=== PATIENT | male | born 1955 | race Caucasian/White ===

== ENCOUNTER 2016-09-26 13:39 | Outpatient (CLI) | payer OTHER ==
[2016-04-19 15:43] VITALS: BP 146/94
== END 2016-09-26 13:40 ==
LOC: CARD 13:39
PROVIDERS: ATTEND Internal Medicine Cardiovascular Disease
DX: I50.9 Heart failure, unspecified (principal)
CPT/HCPCS: 99213

== ENCOUNTER 2016-11-13 08:56 | Outpatient (CLI) | payer OTHER ==
[2016-04-19 15:43] VITALS: BP 146/94
[~2016-11-13 08:56] MED LIST: 0.9 % SODIUM CHLORIDE PF 10 ML VIAL IJ ONE; Lidocaine 1% 5ml(IM or SUTURE)(PAIN CLINIC) ONE; TRIAMCINOLONE ACETONID 40MG/ML VIAL ONE
--- NOTE | 2016-11-13 10:58 | HISTORY AND PHYSICAL REPORT ---
REFERRING PHYSICIAN: Dr. Michael Zavala Dear Michael: HISTORY OF PRESENT ILLNESS: I had the opportunity of seeing Donovan Higuera today as an outpatient at [facility]. As you are aware, Mr. Higuera is a very nice 60-year- old white male whose chief complaint is back and bilateral lower extremity pain. He said this began greater than 10 years ago and that he has pain in his low back, right side greater than the left, which radiates down both legs and results in weakness. He describes symptoms of neurogenic claudication. He denies incontinence of bowel or bladder. He denies symptoms of nani radiculitis. He had an MRI done that was performed at [facility] which I do not have the films for today and the report is significant for facet arthropathy and multi-level spinal stenosis without any definitive report of which levels are the most severe or significant. MRI shows disk desiccation, L2 -L3, L3-L4, and L5-S1 facet arthropathy, L5-S1 concentric disk bulge, and minimal stenosis at L4-L5. PAST MEDICAL HISTORY: 1. History of COPD. 2. CHF. 3. Hypertension. PAST SURGICAL HISTORY: Appendectomy at 13 months old. CURRENT DAILY MEDICATIONS: 1. Lisinopril 40 mg daily. 2. Amlodipine 5 mg at bedtime. 3. Furosemide 20 to 40 mg daily, p.r.n. 4. Symbicort 2 puffs b.i.d. ALLERGIES: He has no known drug allergies. SOCIAL HISTORY: He is a current smoker down to one-half pack per day. He drinks at least 2 beers a day. He denies recreational drugs. He is . He has 3 children. He lives at home alone. He completed the 10th grade. He is not currently employed. Unknown occupation. He is currently disabled for an unknown reason. FAMILY HISTORY: He has no reported family history. REVIEW OF SYSTEMS: In the past month or so, he has no complaints other than related to his back pain. Pain is worse with lying down, standing, bending over, sitting, walking, twisting, and getting up from a chair. Pain is improved with standing and walking and continually changing positions. PHYSICAL EXAMINATION: General: This is a well-nourished, well-developed white male in no apparent distress. Vital Signs: BP: 155/80, P: 76, R: 20, oxygen saturation is 98% on room air. HEENT: Pupils are equal, round, and reactive to light and accommodation. Extraocular movements intact. No facial droop. Neck: There is full range of motion of the cervical spine. No evidence of adenopathy. Thyroid is nontender, no enlarged. Carotids are without bruits. Chest: Clear to auscultation bilaterally. Normal. Chest excursion. Heart: Regular rate and rhythm without murmur. Abdomen: Benign. Normoactive bowel sounds. Motor/sensory: Intact in the upper and lower extremities. Moves all extremities freely. Extremities: Strength is 5/5 and equal in his lower extremities. Negative straight leg raise. Negative femoral nerve stretch. Negative Sandee. ASSESSMENT: 1. Symptoms of neurogenic claudication and lumbar spinal stenosis. 2. Lumbar spondylosis. 3. History of tobacco use. PLAN: Plan today for a right L4-L5 epidural steroid injection. I will follow this nice gentleman up in 1 month. I explained that 1 injection may be sufficient to control his symptoms or we may need to give him a follow up injection. He is in agreement today and we will proceed with a lumbar epidural steroid injection under fluoroscopy. cc: Dr. Michael Zavala. [facility]ENTER[facility]ry
--- NOTE | 2016-11-13 11:02 | LESI WITH FLUORO ---
REFERRING PHYSICIAN: Dr. Michael Zavala OPERATIVE PROCEDURE: Right L4-L5 epidural steroid injection with fluoroscopic guidance. DESCRIPTION OF PROCEDURE: The risks and benefits were discussed with the patient including the risk of infection, bleeding, nerve injury, and headache, as well as the risks of steroid exposure causing hyperglycemia, hypertension, osteoporosis, or increased infectious risks. The patient understood these risks and agreed to proceed. Consent was obtained prior to the procedure. The patient was placed in the prone position on the fluoroscopy table with a pillow underneath the abdomen to afford anterior flexion of the lumbar spine. The low back was cleaned and a sterile drape was applied. An 18-gauge thin wall Tuohy epidural needle was advanced with normal saline loss of resistance technique and direct fluoroscopic guidance with a right paramedian approach at the L4-L5 level. On obtaining loss of resistance to normal saline, it was verified that there was no aspiration of CSF or blood. Furthermore, the needle tip location was verified with lateral and AP fluoroscopic views. Omnipaque 240 myelogram dye were injected through the epidural needle. The distribution of the dye was noted to be within the desired distribution within the lumbar epidural space. Triamcinolone acetate and 1% lidocaine was injected into the epidural space. The stylet was replaced in the needle and the needle was removed from the back. The patient tolerated the procedure well. The back was cleaned and a bandage was applied over the injection site. The patient was monitored for 20 minutes following the procedure and during this time the vital signs remained stable and the patient experienced no adverse sequelae. The patient was discharged in good condition. ASSESSMENT: 1. Lumbar spinal stenosis. 2. Lumbar spondylosis. PLAN: Right L4-L5 epidural steroid injection with fluoroscopic guidance. FOLLOWUP: Return to clinic if problems develop or worsen. cc: Dr. Michael PERALES
== END 2016-11-13 08:57 ==
LOC: OUT 08:56
PROVIDERS: ATTEND Anesthesiology Pain Medicine
DX: M47.816 Spondylosis without myelopathy or radiculopathy, lumbar region (principal); M48.06 Spinal stenosis, lumbar region
CPT/HCPCS: J3301; Q9966; 64483; 99214

== ENCOUNTER 2016-12-24 13:01 | Emergency (ER) | payer OTHER ==
[2016-12-24] MEDS ORDERED: 0.9 % SODIUM CHLORIDE 500 ML IV ONE (13:07)
[2016-12-24] MEDS ORDERED: DIPH,PERTUSS(ACELL),TET VAC/PF 0.5 ML DISP.SYRIN IM ONE (13:16)
[2016-12-24] MEDS ORDERED: NEOMYCIN SU/BACITRAC ZN/POLY 1 EACH OINT.PACK TP ONE (13:16)
--- NOTE | 2016-12-24 13:19 | ED Physician Documentation ---
General Adult - HISTORIAN Historian: patient - HPI Stated Complaint: ? Syncope/Fall Chief Complaint: General Adult Additional Information: Dizzy since yesterday. Worse this am. Passed out and fell on way to bathroom at about 1100. Sister brought him to ER. - ROS CONST: sweating (This am when especially dizzy.) CVS/RESP: shortness of breath, cough (but his usual). denies: chest pain - PAST HX Past History: COPD, CHF, other (spinal stenosis) Allergies/Adverse Reactions: Allergies Allergy/AdvReac Type Severity Reaction Status Date / Time No Known Allergies Allergy Unverified 12/24/16 13:12 Home Medications: Ambulatory Orders Medication Instructions Recorded Aspirin 81 mg PO DAILY u2 10/15/12 - SOCIAL HX Smoking History: cigarettes - FAMILY HX Family History: No - VITAL SIGNS Vital Signs: Vital Signs Temp Pulse Resp BP Pulse Ox 98 F 150 H 26 H 111/71 99 12/24/16 13:05 12/24/16 13:05 12/24/16 13:05 12/24/16 13:05 12/24/16 13:05 - REVIEWED ASSESSMENTS Nursing Assessment Reviewed: Yes Vitals Reviewed: Yes Progress - Progress Progress: HGB 7.9. Now says stools black since last evening. Also notes that there was no blood when he vomited yesterday evening after drank a beer. Incontinent of stool today when passed out. Obvious blood in stool cleaned from him in ER. EKG: sinus tach, 122 BPM 1410, accepted for transfer to [facility] ER per Dr. Ravi, Pulm ICU. Sister [id number] in ER and says she found gross blood, "a large amount" in patient's commode today. ED Results Lab/Radiology - Orders Orders: ED Orders Category Date Time Status Apply occlusive dressing D Care 12/24/16 13:16 Ordered Continuous EKG monitoring Q1H Care 12/24/16 13:06 Ordered Continuous Pulse Oximetry Q1H Care 12/24/16 13:[address] Saline Lock/IV Now Care 12/24/16 13:06 Ordered CBC/PLATELET/DIFF Routine Lab 12/24/16 Ordered CMP Routine Lab 12/24/16 Ordered NT-proBNP Stat Lab 12/24/16 Ordered TROPONIN I (cTnI) Stat Lab 12/24/16 Ordered URINALYSIS Routine Lab 12/24/16 Ordered Diph,Pertuss(Acell),Tet Vac/Pf [Adacel] Med 12/24/16 13:16 Once 0.5 ml IM .ONCE ONE NORMAL SALINE @ 500 MLS/HR(500ml BOLUS) Med 12/24/16 13:07 Ordered 0.9 % Sodium Chloride [Normal Saline] 500 ml IV NOW Neomycin Alex/Bacitrac Zn/Poly [Triple Antibiotic Med 12/24/16 13:16 Once Ointment] 1 each TP NOW ONE EKG WITH COMPARISON Stat Ther 12/24/16 Ordered General Adult Physical Exam - PHYSICAL EXAM GENERAL APPEARANCE: moderate distress EENT: eye inspection normal, ENT inspection normal, pharynx normal NECK: normal inspection, supple RESPIRATORY: no resp distress, breath sounds normal CVS: reg rate & rhythm, heart sounds normal, tachycardia (120-160) ABDOMEN: soft, no organomegaly, normal bowel sounds, non-tender RECTAL: deferred BACK: normal inspection SKIN: normal color, diaphoresis (slight) EXTREMITIES: no evidence of injury (except skin tear right forearm) NEURO: CN's nml as tested, motor nml, sensation nml, cognition normal Discharge Clincal Impression: GI bleed Qualifiers: GI bleed type/associated pathology: melena Qualified Code(s): K92.1 - Melena Home Medications: Ambulatory Orders Aspirin 81 mg PO DAILY u2 10/15/12 Condition: Fair Disposition: 02 XFER SHT-TRM HOSP Decision to Admit: NO Decision Time: 14:10
[2016-12-24 13:23] LABS: BASOPHILS % 0.2 (0.0-1.5); EOSINOPHILS % 0.4 % (0.0-6.8); MEAN CORPUSCULAR VOLUME 92.2 fl (80.0-100.0); MONOCYTES % 4.8 % (0.0-11.0); NEUTROPHILS # 15.5 # k/uL (1.4-7.7)
[2016-12-24 13:34] LABS: eGFR (African) > 60; eGFR (Non-African) > 60
[2016-12-24 14:28] VITALS: BP 89/55
--- NOTE | 2016-12-24 16:59 | Diagnostic Imaging Report ---
STERLING HARVEY~ [facility] [address] [facility] [address] [place], [place]. [address] ~ ~ ~ ~ Report Submission Date: Dec 24, 2016 2:03:28 PM CDT Patient ~ Study Name: PHAM LYNCH ~ Date: Dec 24, 2016 1:48:52 PM CDT ~ Modality Type: CR Gender: M ~ Description: CHEST : 57 ~ Institution: [facility] Physician: STERLING HARVEY ~ ~ ~ ~ Portable upright radiograph the chest Clinical history fainting dizziness Technique AP portable upright radiograph of the chest at 1353 hr FINDINGS: ~ The lung singh are hyperinflated but clear. ~The heart mediastinal structures are unremarkable. ~There is no hemothorax or pneumothorax. ~The bony thorax is normal. ~ IMPRESSION: ~ Hyperinflation No acute infiltrate ~ Electronically signed on Dec 24, 2016 2:03:28 PM CDT by: Fabiano PERALES
[2016-12-25 05:45] LABS: APPEARANCE,URINE CLEAR (CLEAR); COLOR,URINE YELLOW (YELLOW); OCCULT BLOOD,URINE 1+ (NEGATIVE); UROBILINOGEN URINE 0.2 Eu (0.2-1.0)
== END 2016-12-24 14:20 | disposition short-term general hospital (02) ==
LOC: ED 13:01
DX: K92.1 Melena (principal)
CPT/HCPCS: 71010; 80053; 81002; 83880; 84484; 85025; 85610; 87040; 90715; 93005; J7060; 90471; 99283; S1016

== ENCOUNTER 2017-05-31 20:39 | Observation (INO) | payer OTHER ==
--- NOTE | 2017-05-31 21:14 | ED Physician Documentation ---
Syncope/Near Syncope - HISTORIAN Historian: patient, paramedics - HPI Stated Complaint: lightheaded Chief Complaint: Syncope Additional Information: said he felt funny, tried to get up to go to the bathroom, passed out, he had just checked his BP when he was feeling bad and it was 76/50. normal for him is 120/80. he has A-fib. only on ASA. his a-fib is rapid v response. He drinks 12 pack beer daily, smokes 1 pack daily. was hospitalized for CHF last year. was hospitalized for blood transfusion due to bleeding ulcers last spring. he has a insurance clerk that he doesn't see. he feels back to normal now. he has no pain complaints. he wants to go home. Witnessed: Yes Witnessed By: family Position at Time of Episode: standing Symptoms Prior to Episode: light-headed Character of Events(s): lost consciousness, collapsed Symptoms after Event: incontinent of stool. denies: confused after event, incontinent of urine, breathing shallow, breathing stopped, lost pulse Location of Injury: none Associated Symptoms: none, feels back to normal - ROS CONST: denies: recent illness, fever, cough EYES/ENT: none GI/: denies: diarrhea, black stools MS/SKIN/LYMPH: denies: joint pain NEURO/PSYCH: denies: confusion - PAST HX Cardiac Disease: CHF PE Risk Factors: none Surgeries/Procedures: appendectomy Allergies/Adverse Reactions: Allergies Allergy/AdvReac Type Severity Reaction Status Date / Time No Known Allergies Allergy Verified 05/31/17 20:52 Home Medications: Ambulatory Orders Medication Instructions Recorded Aspirin 81 mg PO DAILY u2 10/15/12 Lisinopril [Zestril] 40 mg PO BID 05/31/17 Tramadol HCl [Ultram] 50 mg PO Q6 PRN 05/31/17 - SOCIAL HX Smoking History: cigarettes, greater than 1 pack/day Alcohol Use: heavy Drug Use: none - FAMILY HX Family History: none - VITAL SIGNS Vital Signs: Vital Signs Temp Pulse Resp BP Pulse Ox 96 H 18 115/75 96 05/31/17 21:10 05/31/17 20:40 05/31/17 21:10 05/31/17 20:40 - REVIEWED ASSESSMENTS Nursing Assessment Reviewed: Yes Vitals Reviewed: Yes Progress - Progress Progress: Dr Gutierres said ok to admit. ED Results Lab/Radiology - Lab Results Lab Results: Lab Results 05/31/17 05/31/17 05/31/17 21:20 21:20 20:21 WBC 8.90 K/ul K/ul (4.00-12.00) RBC 4.24 M/ul M/ul (3.90-5.20) Hgb 12.7 g/dL g/dL (12.0-18.0) Hct 36.3 % L % (37.0-53.0) MCV 85.7 fl fl (80.0-100.0) MCH 30.1 pg pg (28.0-34.0) MCHC 35.1 g/dL g/dL (30.0-36.0) RDW 15.2 % H % (11.3-14.3) Plt Count 177 K/mm3 K/mm3 (130-400) Neut % (Auto) 69.0 % % (39.0-79.0) Lymph % (Auto) 17.5 % % (16.0-50.0) Bremer % (Auto) 9.1 % % (0.0-11.0) Eos % (Auto) 2.4 % % (0.0-6.8) Baso % (Auto) 0.4 (0.0-1.5) Neut # (Auto) 6.1 # k/uL # k/uL (1.4-7.7) Lymph # (Auto) 1.6 # k/uL # k/uL (0.6-4.0) Bremer # (Auto) 0.8 # k/uL # k/uL (0.0-0.9) Eos # (Auto) 0.2 # k/uL # k/uL (0.0-0.6) Baso # (Auto) 0.0 # k/uL # k/uL (0.0-0.5) Reactive Lymphs % 1.6 % % (0.0-5.0) Reactive Lymphs # 0.1 # k/uL # k/uL (0.0-0.8) Sodium 122 mmol/L L mmol/L (136-145) Potassium 3.9 mmol/L mmol/L (3.5-5.0) Chloride 87 mmol/L L mmol/L (98-110) Carbon Dioxide 24 mmol/L mmol/L (20-32) BUN 9 mg/dL L mg/dL (10-26) Creatinine 1.3 mg/dL mg/dL (0.4-1.5) Estimated Creat Clear 135 Est GFR ( Amer) > 60 (60 - ) Est GFR (Non-Af Amer) 60 (60 - ) Glucose 102 mg/dL H mg/dL (70-99) Calcium 9.0 mg/dL mg/dL (8.5-10.5) Total Bilirubin 0.9 mg/dL mg/dL (0.2-1.2) AST 53 U/L H U/L (0-41) ALT 33 U/L U/L (0-45) Alkaline Phosphatase 131 U/L H U/L (46-116) CK-MB (CK-2) 1.7 ng/mL ng/mL (0.0-5.6) Troponin I < 0.03 ng/mL L ng/mL (0.03-0.06) NT-Pro-B Natriuret Pep 900.4 pg/mL H pg/mL (15.0-125.0) Total Protein 7.5 g/dL g/dL (6.0-8.5) Albumin 4.3 g/dL g/dL (3.0-5.5) - Radiology Radiology Impressions: left pleural effusion ct head no acute - Orders Orders: ED Orders Category Date Time Status Orthostatics 1T Care 05/31/17 21:10 Active CHEST P.A.&LAT 2 VIEWS [RAD] Stat Exams 05/31/[address] BRAIN W/O CONTRAST Stat Exams 05/31/17 Completed BNP [NT-proBNP] Stat Lab 05/31/17 21:20 Completed CBC/PLATELET/DIFF Routine Lab 05/31/17 20:21 Completed CKMB Stat Lab 05/31/17 21:20 Completed CMP Routine Lab 05/31/17 21:20 Completed TROPONIN I (cTnI) Stat Lab 05/31/17 21:20 Completed URINALYSIS Routine Lab 05/31/17 Ordered EKG WITH COMPARISON Stat Ther 05/31/17 Ordered Syncope Physical Exam - Physical Exam General Appearance: no acute distress, alert EENT: nml eye inspection, nml ENT inspection. No: swelling, ecchymosis, pupils unequal Neck/Back: neck supple, no carotid bruit Respiratory: no resp distress, chest non-tender, breath sounds normal CVS: irregularly irregular rhy, tachycardia Abdomen: other (too large to assess) - Neuro/Psych Higher Functions: alert, oriented x3, no evidence of acute CVA, mood/affect nml Cranial Nerves: nml as tested Sensorimotor: nml motor response, nml sensory response Discharge Clincal Impression: Acute hyponatremia, Alcohol abuse, Syncope and collapse, GERD with apnea CHF (congestive heart failure) Qualifiers: Congestive heart failure type: unspecified congestive heart failure type Congestive heart failure chronicity: acute on chronic Qualified Code(s): I50.9 - Heart failure, unspecified Obesity Qualifiers: Obesity type: unspecified obesity type Obesity classification: adult class 3 ( BMI >= 40) Serious obesity comorbidity presence: with serious comorbidity Body mass index: unspecified BMI Qualified Code(s): E66.9 - Obesity, unspecified A-fib Qualifiers: Atrial fibrillation type: chronic Qualified Code(s): I48.2 - Chronic atrial fibrillation Referrals: Michael Zavala MD [Primary Care Provider] - 2 Days Condition: Fair Disposition: 09 ADMITTED INPATIENT Decision to Admit: [id number] Date of Decison to Admit: 05/31/17 Decision Time: 22:26
[2017-05-31 21:26] LABS: BASOPHILS % 0.4 (0.0-1.5); EOSINOPHILS % 2.4 % (0.0-6.8); MEAN CORPUSCULAR HEMOGLOBIN 30.1 pg (28.0-34.0); MEAN CORPUSCULAR VOLUME 85.7 fl (80.0-100.0); MONOCYTES % 9.1 % (0.0-11.0); NEUTROPHILS # 6.1 # k/uL (1.4-7.7)
[2017-05-31 21:42] LABS: eGFR (African) > 60; eGFR (Non-African) 60
--- NOTE | 2017-05-31 21:54 | Diagnostic Imaging Report ---
MALINDA SOTO [facility] [address] [facility] [address] [address] Report Submission Date: May 31, 2017 9:49:47 PM CDT Patient Study Name: PHAM LYNCH Date: May 31, 2017 9:33:41 PM CDT Modality Type: CT\SR Gender: M Description: CT BRAIN W/O CONTRAST : 57 Institution: [facility] Physician: MALINDA SOTO CT Brain without Contrast History: Syncope Technique: Transaxial CT was performed without contrast from the skull base to the vertex. Findings: Scattered bilateral white matter hypodensity is present, consistent with gliosis. Mild cerebral atrophy is present. The lateral ventricles are mildly dilated. No hemorrhage or edema-producing mass. The fourth ventricle is midline. The paranasal sinuses are clear. No skull fracture. The mastoid air cells are well developed and well aerated. Impression: 1. Mild cerebral atrophy and white matter gliosis. 2. No acute cerebral pathology. Electronically signed on May 31, 2017 9:49:47 PM CDT by: Josh Ba [facility]AMPUSLarry
[2017-05-31] MEDS ORDERED: FUROSEMIDE 40 MG/4 ML VIAL ONE (22:48)
[2017-05-31] MEDS ORDERED: FUROSEMIDE 40 MG/4 ML VIAL IVP SCH (23:00)
[2017-05-31] MEDS: NICOTINE 21mg 1 EACH PATCH.TD24 TD SCH (23:03)
[2017-06-01 00:07] VITALS: BMI 39.4
[2017-06-01] MEDS ORDERED: LORazepam 2 MG/ML VIAL ONE (00:50)
[2017-06-01] MEDS: LORazepam 2 MG/ML VIAL IVP SCH ×5 (00:58→08:43)
[2017-06-01 05:33] LABS: APPEARANCE,URINE CLEAR (CLEAR); COLOR,URINE YELLOW (YELLOW); OCCULT BLOOD,URINE NEGATIVE (NEGATIVE)
[2017-06-01 05:34] LABS: PH URINE 5.5 (5.0 - 8.0)
--- NOTE | 2017-06-01 06:21 | Diagnostic Imaging Report ---
MALINDA SOTO [facility] [address] [facility] [address] [address] Report Submission Date: May 31, 2017 10:08:50 PM CDT Patient Study Name: PHAM LYNCH Date: May 31, 2017 9:39:22 PM CDT Modality Type: CR Gender: M Description: CHEST : 57 Institution: [facility] Physician: MALINDA SOTO Chest, 2 view History: SYNCOPE, HX. CHF Findings: The heart size is normal. The lungs are clear. There is blunting left costophrenic angle suggesting a trace effusion or pleural thickening. A BB superimposed as the left lower lung . The osseous structures are normal. Impression: 1. No acute point filtrate. 2. Blunted left costophrenic angle suggesting pleural thickening or small left effusion. Electronically signed on May 31, 2017 10:08:50 PM CDT by: Josh PERALES
[2017-06-01] MEDS: FUROSEMIDE 40 MG/4 ML VIAL IVP SCH ×2 (06:27→14:25)
--- NOTE | 2017-06-01 06:52 | History and Physical Report ---
History of Present Illnes - History of Present Illness Reason for Visit: syncope History of Present Illness: 61-year-old white male receiving the ED on the night of admission for any syncopal/new syncopal episode. Patient stated he got up out of bed to go to the bathroom and passed out when he was in the hallway. Patient states it is been having some lightheaded and dizziness associated with orthostatic changes for several weeks. Patient stated he has to hang onto furniture when he is walking in his trailer. Patient does have a history of atrial fib. Patient not sure if he is been having any tachycardia bradycardia associated with that. Patient does not have a history of diabetes mellitus. Patient denies any hypoglycemic episodes that he is aware. Patient does have a history of hypertension stated his alliance party note that is been stable. Patient denies any chest pain chest pressure TIA or CVA symptom. Any emergency room patient was noted to be hyponatremia with her sodium of 121. Patient did have an elevated BNP. Chest x- ray was felt to be within normal limits. Patient was subsequently admitted to the hospital for further care and evaluation. - Past Medical History Cardiac: AFIB, CHF, HTN Pulmonary: COPD, Sleep Apnea Gastrointestinal: GI bleed (gastric ulcer), Irritable bowel disease Musculoskeletal: Chronic low back pain Endocrine: Other (obesity) Dermatology: Other (seborric dermatitis) - Past Surgical History Past Surgical History: Appendectomy - Past Family History Father Family History: DM Brother 1 Family History: Cancer (prostate) - Past Social History Smoke: # pack years (31), <1 pack per day (1/2 ppd) Alcohol: Heavy (1-12 beers daily) Drugs: None Lives: With Family Domestic Violence: Negative - Health Maintenance Health Maintenance: Pneumococcal Vaccine Influenza Vaccine: No Pneumonia Vaccine: Yes Resuscitation Status: Resusciation Status Resuscitation Status Full Code - Unable to Obtain History Unable to Obtain: No Review of Systems - Review of Systems Constitutional: negative: Fever, Chills, Sweats Eyes: negative: pain, vision change ENT: negative: Ear Pain, Ear Discharge, Nose Discharge, Nose Congestion, Throat Swelling Respiratory: Shortness of Breath, SOB with Excertion. negative: Cough, Dry, Hemoptysis, Pleuritic Pain, Sputum, Wheezing Cardiovascular: Light Headedness. negative: Chest Pain, Palpitations, Orthopnea , Paroxysmal Noc. Dyspnea, Edema Gastrointestinal: negative: Nausea, Vomiting, Abdominal Pain, Diarrhea, Constipation, Melena, Hematochezia Genitourinary: negative: Dysuria, Frequency, Incontinence Musculoskeletal: negative: Neck Pain, Shoulder Pain Skin: negative: Rash Neurological: negative: Weakness, Numbness, Incoordination, Change in Speech, Confusion, Seizures - Medications/Allergies Allergies/Adverse Reactions: Allergies Allergy/AdvReac Type Severity Reaction Status Date / Time No Known Allergies Allergy Verified 05/31/17 20:52 Home Medications: Home Medications Lisinopril [Zestril] 40 mg PO BID 05/31/17 Tramadol HCl [Ultram] 50 mg PO Q6 PRN 05/31/17 Current Inpatient Medications: Current Inpatient Medications Furosemide (Lasix) 40 mg IVP 714 [facility] Last Admin: 06/01/17 06:27 Dose: 40 mg Lorazepam (Ativan) 2 mg IVP Q2 [facility] Last Admin: 06/01/17 06:25 Dose: Not Given Nicotine (Habitrol 21mg) 1 each TD DAILY [facility] Last Admin: 05/31/17 23:03 Dose: Not Given Sodium Chloride (Normal Saline Flush) 3 ml IV BID [facility] Exam - Exam Vital Signs: Vital Signs (72 hours) 05/31/17 06/01/17 06/01/17 22:47 02:00 05:02 Temperature 97.9 F 98.2 F 98.2 F Pulse Rate [ 124 H 111 H 111 H Left Pulse ox] Respiratory 20 20 18 Rate Blood Pressure 115/68 111/64 109/73 [Right Arm] O2 Sat by Pulse 92 92 93 Oximetry General: Alert, Oriented to Person, Oriented to Place, Oriented to Time, Cooperative HEENT: Atraumatic Neck: Normal Range of Motion. No: Lymphadenopathy Carotids: normal Thyroid: normal Lungs: Clear to auscultation, Normal air movement, Speaks full Sentences, Wheezes, Rales, Rhonchi. No: Respiratory Distress Cardiovascular: Irregularly Irregular, Tachycardia Abdomen: Normal bowel sounds, Soft, No tenderness, No hepatospenomegaly, No masses Integumentary: Normal, [place], Warm, Dry Extremities: Other (trace edema) Neurological: Normal gait, Strength Equal Bilat Psych/Mental Status: Mental status NL, Mood NL, Appropriate Affect, Intact Judgment Assessment/Plan - Assessment/Plan (1) A-fib Status: Chronic Qualifiers: Atrial fibrillation type: chronic Qualified Code(s): I48.2 - Chronic atrial fibrillation Assessment: RVR, will start cardizem drip (2) Acute hyponatremia Status: Acute (3) Alcohol abuse Status: Chronic Assessment: ativan for alcohol assessment, folate and thiamine (4) Syncope and collapse Status: Acute Assessment: possibly due to a fib with RVR, will slow down rate and see how he does. VTE Assessment - RISK FACTOR SCORE VTE RISK FACTOR SCORES: AGE 40-60 YEARS, ANTICIPATED BED CONFINEMENT OR IMMOBILIZATION > 24 HOURS - RISK VTE MODERATE RISK: SCORE OF 2 (RISK PROXIMAL DVT 2-4%) PROPHYAXIS NEEDED
[2017-06-01] MEDS: NICOTINE 21mg 1 EACH PATCH.TD24 TD SCH (07:42)
[2017-06-01 07:43] LABS: eGFR (African) > 60; eGFR (Non-African) > 60
[2017-06-01] MEDS ORDERED: DILTIAZEM HCL 125 MG in 0.9 % SODIUM CHLORIDE 100 ML IV STA (08:32)
[2017-06-01] MEDS ORDERED: LORazepam 2 MG/ML VIAL IVP PRN (08:43)
[2017-06-01] MEDS: 0.9 % SODIUM CHLORIDE 1,000 ML IV SCH ×2 (08:50→18:05)
[2017-06-01] MEDS ORDERED: ALBUTEROL SULFATE 200 PUFF INHALER INH PRN (08:53)
[2017-06-01] MEDS ORDERED: 0.9 % SODIUM CHLORIDE 1,000 ML IV SCH (09:00)
[2017-06-01] MEDS: ENOXAPARIN SODIUM 30 MG/0.3 ML DISP.SYRIN SQ SCH (09:47)
[2017-06-01] MEDS: LISINOPRIL 20 MG TABLET PO SCH (09:48)
[2017-06-01] MEDS: PANTOPRAZOLE SODIUM 40 MG TABLET PO SCH ×2 (09:48→17:06)
[2017-06-01] MEDS: traMADol HCL 50 MG TABLET PO PRN ×2 (11:59→18:52)
[2017-06-01] MEDS: SALINE FLUSH 10 ML DISP.SYRIN IV SCH ×2 (14:25→19:48)
[2017-06-01] MEDS ORDERED: HYDROCORTISONE 2.5% RECTAL 28.35 GM TUBE RC PRN (16:08)
[2017-06-01] MEDS ORDERED: DILTIAZEM HCL 120 MG CAP.ER.24H ONE ×2 (18:43→20:51)
[2017-06-01] MEDS: DILTIAZEM HCL 125 MG in 0.9 % SODIUM CHLORIDE 100 ML IV SCH ×2 (18:44→19:46)
[2017-06-01] MEDS: DILTIAZEM HCL 120 MG CAP.ER.24H PO SCH (18:48)
[2017-06-01] MEDS ORDERED: DILTIAZEM HCL 125 MG in 0.9 % SODIUM CHLORIDE 100 ML IV SCH (21:00)
[2017-06-02] MEDS: 0.9 % SODIUM CHLORIDE 1,000 ML IV SCH (04:04)
[2017-06-02] MEDS ORDERED: FUROSEMIDE 40 MG TABLET PO ONE (05:59)
[2017-06-02] MEDS: PANTOPRAZOLE SODIUM 40 MG TABLET PO SCH (06:02)
[2017-06-02] MEDS: FUROSEMIDE 40 MG/4 ML VIAL IVP SCH (06:02)
[2017-06-02] MEDS: traMADol HCL 50 MG TABLET PO PRN ×2 (07:22)
[2017-06-02] MEDS: NICOTINE 21mg 1 EACH PATCH.TD24 TD SCH (08:22)
[2017-06-02] MEDS: DILTIAZEM HCL 120 MG CAP.ER.24H PO SCH (08:22)
[2017-06-02] MEDS: ENOXAPARIN SODIUM 30 MG/0.3 ML DISP.SYRIN SQ SCH (08:22)
[2017-06-02] MEDS: SALINE FLUSH 10 ML DISP.SYRIN IV SCH (08:23)
[2017-06-02] MEDS: LISINOPRIL 20 MG TABLET PO SCH (08:23)
[2017-06-02 08:36] LABS: eGFR (African) > 60; eGFR (Non-African) > 60
[2017-06-02 09:36] VITALS: BP 118/83
--- NOTE | 2017-06-09 11:39 | Discharge Summary ---
Discharge Summary - Discharge Sumary History of Present Illness: 61-year-old white male receiving the ED on the night of admission for any syncopal/new syncopal episode. Patient stated he got up out of bed to go to the bathroom and passed out when he was in the hallway. Patient states it is been having some lightheaded and dizziness associated with orthostatic changes for several weeks. Patient stated he has to hang onto furniture when he is walking in his trailer. Patient does have a history of atrial fib. Patient not sure if he is been having any tachycardia bradycardia associated with that. Patient does not have a history of diabetes mellitus. Patient denies any hypoglycemic episodes that he is aware. Patient does have a history of hypertension stated his green party note that is been stable. Patient denies any chest pain chest pressure TIA or CVA symptom. Any emergency room patient was noted to be hyponatremia with her sodium of 121. Patient did have an elevated BNP. Chest x- ray was felt to be within normal limits. Patient was subsequently admitted to the hospital for further care and evaluation. Condition at Discharge: Stable Home Medications: Ambulatory Orders Medication Instructions Recorded Aspirin 81 mg PO DAILY u2 10/15/12 Lisinopril [Zestril] 40 mg PO BID 05/31/17 Tramadol HCl [Ultram] 50 mg PO Q6 PRN 05/31/17 Diltiazem HCl [Diltiazem 24Hr Cd] 240 mg PO D #30 cap.er.24h 06/02/17 Consultations this Visit: None Procedures this Visit: None Allergies/Adverse Reactions: Allergies Allergy/AdvReac Type Severity Reaction Status Date / Time No Known Allergies Allergy Verified 05/31/17 20:52 Discharge Summary: Patient was admitted and started on normal saline. Patient sodium did improve from 121 to 133. Patient was noted to be in a to a fib with a rapid ventricular response up to 140-160. Patient was started on some metoprolol with only minimal improvement. Patient within started on IV Cardizem. Patient was transitioned over to PO Cardizem. At the time of dismissal patient pulse was running in the 80s most of the time. Patient did not have any chest pain or chest pressure.Patient did have a history of alcohol dependency. Patient exhibited some mild alcohol withdrawal symptoms during is hospital stay. These were easily controlled with PO Ativan.Patient was discharged in stable condition. - Final Diagnosis (1) A-fib Problems: with tachy rhythm, improved (2) Acute hyponatremia Problems: improved (3) Alcohol abuse Problems: stable with minimal withdrawal symptoms
== END 2017-06-02 10:31 | disposition home or self-care (01) ==
LOC: ED 20:39 → SOUTH 22:40
PROVIDERS: ADMIT Family Medicine; ATTEND Family Medicine
DX: R55 Syncope and collapse (principal); F10.20 Alcohol dependence, uncomplicated; I48.91 Unspecified atrial fibrillation; E87.1 Hypo-osmolality and hyponatremia
CPT/HCPCS: 36415; 70450; 71020; 80048; 80053; 81002; 82553; 83880; 84484; 85025; 93005; G0378; J1650; J1940; J2060; J3490; J7030; 96361; 96374; 96375; 96376; 99283; 99284; S1016

== ENCOUNTER 2018-09-17 12:01 | Emergency (ER) | payer OTHER ==
[2018-09-17] MEDS ORDERED: 0.9 % SODIUM CHLORIDE 1,000 ML IV ONE ×2 (12:16→13:15)
[2018-09-17] MEDS ORDERED: DILTIAZEM HCL 25 MG/5 ML VIAL IVP ONE ×2 (12:18→13:15)
--- NOTE | 2018-09-17 12:18 | ED Physician Documentation ---
General Adult - HISTORIAN Historian: patient - HPI Chief Complaint: General Adult Further Comments: yes (62 year old male patient brought in by [facility] who was found in bed by his sister; unable to get out of bed due to weakness. Patient has long history of ETOH abuse. States he has not taken his medication in 2 days, because he could not get out of bed. Patient is a very poor medical research associate. Old records reviewed.) - ROS CONST: no problems (Patient is poor historian), weakness - PAST HX Past History: COPD, CHF, other (A fib (not on anticoagulation therapy)) Other History: other (GI bleed 12/2016) Surgeries/Procedures: other (appendectomy) Allergies/Adverse Reactions: Allergies Allergy/AdvReac Type Severity Reaction Status Date / Time No Known Drug Allergies Allergy Verified 09/17/18 12:23 Home Medications: Ambulatory Orders Medication Instructions Recorded Aspirin 81 mg PO DAILY u2 10/15/12 Lisinopril [Zestril] 40 mg PO BID 05/31/17 - SOCIAL HX Smoking History: cigarettes Alcohol Use: heavy (since age 18 - max 12-24 beers per day; currently "4 beers a day") - FAMILY HX Family History: No - VITAL SIGNS Vital Signs: Vital Signs Temp Pulse Resp BP Pulse Ox 118/83 06/02/17 09:35 - REVIEWED ASSESSMENTS Nursing Assessment Reviewed: Yes Vitals Reviewed: Yes Progress - Progress Progress: Reviewed lab and CT findings with patient; explained he needed to be transferred for correction of low sodium level and further evaluation of liver cirrhosis. Agrees to transfer to [facility]. Patient is cooperative and pleasant with treatments. - EKG/XRAY/CT EKG: rhythm (Afib, rate 154) ED Results Lab/Radiology - Radiology Radiology Impressions: HISTORY: 62-year-old male with elevated LFTs and abdominal distension COMPARISON: None available TECHNIQUE: Helical CT images of the abdomen and pelvis were performed with 93 ml Omnipaque IV contrast. Sagittal and coronal reformatted images were obtained. FINDINGS: CT abdomen: There is scarring in the lung bases. There are coronary artery calcifications. The liver is diffusely extensively nodular and somewhat shrunken, consistent with advanced cirrhosis. The gallbladder is distended, measuring 12.8 cm in length x 4.8 cm in width, without evidence of gallstones or definite gallbladder wall thickening. The spleen, pancreas, kidneys, and adrenal glands are unremarkable. No abdominal aortic aneurysm. There are thick atherosclerotic calcifications of the abdominal aorta and major branches. There is moderate free fluid in the upper abdomen. The portal vein is patent and there is a recanalization of the umbilical vein. CT pelvis: No abnormal bowel dilatation, free air, or suspicious adenopathy. The appendix is not definitely visualized, and there are no secondary signs of acute appendicitis. The urinary bladder is normal in appearance. There is subtle increased density in the femoral head subcortical bone marrow and mild degenerative changes of both hips. There is bilateral L5 spondylolysis with grade 1 anterolisthesis L5 on S1 measuring 5 mm AP. There is advanced degenerative disc disease L5-S1 with significant neural foraminal stenosis bilaterally at this level. IMPRESSION: 1. Advanced hepatic cirrhosis with nodular shrunken liver, abdominopelvic ascites, and collateral vascularization. 2. Coronary artery disease and advanced atherosclerotic vascular disease in the abdomen and pelvis. 3. Gallbladder hydrops is nonspecific and may be related to cirrhosis/ascites versus acalculous cholecystitis. If the patient has signs or symptoms of acalculous cholecystitis, consider follow-up hepatobiliary scintigraphy to make this distinction. 4. Bilateral mild hip degenerative changes and question of early avascular necrosis of the hips. Consider follow-up MRI of the hips on outpatient basis f or better characterization. 5. Bilateral L5 spondylolysis with grade 1 anterolisthesis L5 on S1. There is associated degenerative disc disease and significant neural foraminal stenosis bilaterally at L5-S1. Electronically signed on Sep 17, 2018 2:24:49 PM BASEBALL PITCHER by: - Orders Orders: ED Orders Category Date Time Status Place IV Lock 1T Care 09/17/18 12:15 Ordered ALCOHOL MEDICAL USE ONLY Stat Lab 09/17/18 Ordered AMYLASE Routine Lab 09/17/18 Ordered CBC/PLATELET/DIFF Stat Lab 09/17/18 12:15 Ordered CMP Stat Lab 09/17/18 12:15 Ordered LACTATE Stat Lab 09/17/18 12:15 Ordered LIPASE Stat Lab 09/17/18 Ordered PT-INR Stat Lab 09/17/18 12:15 Ordered PTT Routine Lab 09/17/18 Ordered TROPONIN I (cTnI) Stat Lab 09/17/18 12:15 Ordered UA W/MICRO IF INDICATED Stat Lab 09/17/18 12:15 Ordered Urine drug screen [DRUG SCREEN URINE MEDICAL ONLY] Stat Lab 09/17/18 12:17 Ordered 0.9 % Sodium Chloride [Normal Saline] 1,000 ml Med 09/17/18 12:16 Ordered IV NOW EKG WITH COMPARISON Stat Ther 09/17/18 12:15 Ordered General Adult Physical Exam - PHYSICAL EXAM GENERAL APPEARANCE: moderate distress EENT: scleral icterus RESPIRATORY: no resp distress, chest non-tender, breath sounds normal CVS: heart sounds normal, equal pulses, no murmur, no gallop, PMI nml, no JVD, no friction rub, irregularly irregular rhy, other (A fib on monitor 140s) ABDOMEN: no abdominal bruit, non-tender, decreased BS, distended, other (ascites) SKIN: warm/dry, other (jaundice) EXTREMITIES: non-tender, normal range of motion, other (generalized weakness) NEURO: motor nml, sensation nml, mood/affect nml (flat affect), speech/cognition abnml (oriented to person and place onlyo) Discharge Clincal Impression: Advanced hepatic cirrhosis, Hyponatremia, Alcohol abuse, Atrial fibrillation with RVR A-fib Qualifiers: Atrial fibrillation type: chronic Qualified Code(s): I48.2 - Chronic atrial fibrillation Leukocytosis Qualifiers: Leukocytosis type: bandemia Qualified Code(s): D72.825 - Bandemia Referrals: Michael Zavala MD [Primary Care Provider] - 2 Days Condition: Serious Disposition: 02 XFER SHT-TRM HOSP Decision to Admit: NO Decision Time: 15:03
[2018-09-17 12:32] LABS: MEAN CORPUSCULAR HEMOGLOBIN 30.2 pg (28.0-34.0)
[2018-09-17 12:33] LABS: BASOPHILS % 0.6 (0.0-1.5); EOSINOPHILS % 1.1 % (0.0-6.8); MONOCYTES % 6.6 % (0.0-11.0); NEUTROPHILS # 10.3 # k/uL (1.4-7.7)
[2018-09-17 12:41] LABS: eGFR (Non-African) > 60
[2018-09-17] MEDS ORDERED: GUM MASTIC/STORAX/MSAL/ALCOHOL 1 EACH DROPERETTE TP ONE ×2 (12:41→13:31)
--- NOTE | 2018-09-17 14:33 | Diagnostic Imaging Report ---
ELIZA LEWIS (COMMERCIAL CORRESPONDENT) - ER [facility] [address] [facility] [address] Report Submission Date: Sep 17, 2018 2:24:49 PM CLINICAL TRIALS SYSTEMS ADMINISTRATOR Patient Study Name: PHAM LYNCH V Date: Sep 17, 2018 1:35:19 PM CLINICAL TRIALS SYSTEMS ADMINISTRATOR Modality Type: CT\SR Gender: M Description: CT ABD PELVIS W/ CON : 57 Institution: [facility] Physician: ELIZA LEWIS (CHALINO) - ER HISTORY: 62-year-old male with elevated LFTs and abdominal distension COMPARISON: None available TECHNIQUE: Helical CT images of the abdomen and pelvis were performed with 93 ml Omnipaque IV contrast. Sagittal and coronal reformatted images were obtained. FINDINGS: CT abdomen: There is scarring in the lung bases. There are coronary artery calcifications. The liver is diffusely extensively nodular and somewhat shrunken, consistent with advanced cirrhosis. The gallbladder is distended, measuring 12.8 cm in length x 4.8 cm in width, without evidence of gallstones or definite gallbladder wall thickening. The spleen, pancreas, kidneys, and adrenal glands are unremarkable. No abdominal aortic aneurysm. There are thick atherosclerotic calcifications of the abdominal aorta and major branches. There is moderate free fluid in the upper abdomen. The portal vein is patent and there is a recanalization of the umbilical vein. CT pelvis: No abnormal bowel dilatation, free air, or suspicious adenopathy. The appendix is not definitely visualized, and there are no secondary signs of acute appendicitis. The urinary bladder is normal in appearance. There is subtle increased density in the femoral head subcortical bone marrow and mild degenerative changes of both hips. There is bilateral L5 spondylolysis with grade 1 anterolisthesis L5 on S1 measuring 5 mm AP. There is advanced degenerative disc disease L5-S1 with significant neural foraminal stenosis bilaterally at this level. IMPRESSION: 1. Advanced hepatic cirrhosis with nodular shrunken liver, abdominopelvic ascites, and collateral vascularization. 2. Coronary artery disease and advanced atherosclerotic vascular disease in the abdomen and pelvis. 3. Gallbladder hydrops is nonspecific and may be related to cirrhosis/ascites versus acalculous cholecystitis. If the patient has signs or symptoms of acalculous cholecystitis, consider follow-up hepatobiliary scintigraphy to make this distinction. 4. Bilateral mild hip degenerative changes and question of early avascular necrosis of the hips. Consider follow-up MRI of the hips on outpatient basis for better characterization. 5. Bilateral L5 spondylolysis with grade 1 anterolisthesis L5 on S1. There is associated degenerative disc disease and significant neural foraminal stenosis bilaterally at L5-S1. Electronically signed on Sep 17, 2018 2:24:49 PM CLINICAL TRIALS SYSTEMS ADMINISTRATOR by: Praveen PERALES
--- NOTE | 2018-09-17 14:34 | Diagnostic Imaging Report ---
ELIZA LEWIS (YOUTH LEADER) - ER [facility] [address] [address] Report Submission Date: Sep 17, 2018 2:34:12 PM DIGITAL WATCH ASSEMBLER Patient Study Name: PHAM LYNCH V Date: Sep 17, 2018 1:58:07 PM DIGITAL WATCH ASSEMBLER Modality Type: DX Gender: M Description: CHEST : 57 Institution: [facility] Physician: ELIZA LEWIS (YOUTH LEADER) - ER Examination: Portable chest History: Evaluate lungs Comparison exam: None provided. Findings: Single view of the chest demonstrates a normal cardiac and mediastinal silhouette. Linear atelectasis left lung base. Remaining lung singh without focal infiltrate. No blunting of the costophrenic margins. Osseous structures are appropriate for age. Impression: Left base linear atelectasis. No effusion. Electronically signed on Sep 17, 2018 2:34:12 PM DIGITAL WATCH ASSEMBLER by: Livan PERALES
[2018-09-17] MEDS ORDERED: cefTRIAXone SODIUM 1 GM INJ ONE (15:34)
[2018-09-17 15:48] VITALS: BP 100/65
[2018-09-17 16:46] LABS: APPEARANCE,URINE CLEAR (CLEAR); COLOR,URINE ORANGE (YELLOW); OCCULT BLOOD,URINE NEGATIVE (NEGATIVE)
[2018-09-17 16:47] LABS: UROBILINOGEN URINE >=8.0 Eu (0.2-1.0)
[2018-09-17 17:07] LABS: CANNABINOIDS NON NEGATIVE ng/mL (< 50); METHYLENEDIOXYMETHAMPHETAMINE NEGATIVE ng/mL (<500)
== END 2018-09-17 15:42 | disposition short-term general hospital (02) ==
LOC: ED 12:01
DX: K74.69 Other cirrhosis of liver (principal); E87.1 Hypo-osmolality and hyponatremia; F10.10 Alcohol abuse, uncomplicated; Y90.1 Blood alcohol level of 20-39 mg/100 ml; I48.2 Chronic atrial fibrillation; D72.825 Bandemia
CPT/HCPCS: 36415; 51702; 71045; 74177; 80053; 80320; 80377; 81002; 83605; 83690; 84484; 85025; 85610; 85730; 87040; 87086; 93005; 96365; 96375; 99285; J0696; J3490; J7030; Q9967; G0480; G0481; S1016

== ENCOUNTER 2018-12-26 06:28 | Emergency (ER) | payer OTHER ==
[2018-12-26] MEDS ORDERED: MORPHINE SULFATE 10 MG/ML VIAL IV ONE (06:41)
--- NOTE | 2018-12-26 06:51 | ED Physician Documentation ---
General Adult - HISTORIAN Historian: patient - HPI Stated Complaint: shortness of breath Chief Complaint: General Adult Additional Information: Patient presents to ER with shortness of breath secondary to ascites/abdominal distention. Patient has been on Hospice since September. skilled nursing states patient revoked his Hospice this morning. In discussion with the patient upon arrival patient reports he want to remain on Hospice. Patient is alert and oriented x 4. Timing: still present Severity: severe Further Comments: no - ROS CONST: no problems EYES/ENT: none CVS/RESP: none GI/: vomiting, nausea MS/SKIN/LYMPH: none NEURO/PSYCH: denies: headache - PAST HX Past History: other (liver failure) Other History: none Surgeries/Procedures: none - SOCIAL HX Smoking History: non-smoker Alcohol Use: none Drug Use: none - FAMILY HX Family History: No - VITAL SIGNS Vital Signs: Vital Signs Temp Pulse Resp BP Pulse Ox 100/65 09/17/18 15:42 - REVIEWED ASSESSMENTS Nursing Assessment Reviewed: Yes <Elizabeth Magana - Last Filed: 12/26/18 07:02> - VITAL SIGNS Vital Signs: Vital Signs Temp Pulse Resp BP Pulse Ox 100/65 09/17/18 15:42 <Radha Lema - Last Filed: 12/26/18 08:55> - PAST HX Allergies/Adverse Reactions: Allergies Allergy/AdvReac Type Severity Reaction Status Date / Time No Known Drug Allergies Allergy Verified 12/26/18 07:09 Home Medications: Ambulatory Orders Medication Instructions Recorded Acetaminophen [Tylenol] 2 tab PO Q6 PRN 12/26/18 Hyoscyamine Sulfate [Levsin SL] 1 tab SL Q1 PRN 12/26/18 LORazepam [Ativan] 1 tab PO Q1 PRN 12/26/18 Mag Hydrox/Aluminum Hyd/Simeth 30 ml PO DAILY PRN 12/26/18 [Mylanta] Magnesium Hydroxide [Milk of 30 ml PO DAILY PRN 12/26/18 Magnesia] Metoprolol Succinate [Kapspargo 1 tab PO BID 12/26/18 Sprinkle] Morphine Sulfate 1 ml SL PRN PRN 12/26/18 Spironolactone [Aldactone] 1 tab PO DAILY 12/26/18 diphenhydrAMINE HCL [Benadryl] 1 tab PO Q6 PRN 12/26/18 Progress - Progress Progress: 0705: care assumed. Pt is in the room. Mild shortness of breath. He states he was on hospice but he wants to go home (social aspect of this is complicated due to his sister (MOISÉS) states she cannot care for him at home. He is wheezing throughout. His abdomen is grossly distended and bowel sounds are not able to be heard. He has 2+ pitting edema in both lower legs. DG [id number]: Call into [facility] - transfer center about transfer DG [id number]: pt states he does not want to be a DNR. This was witnessed by two nurses and his sister DG [id number]: Discussed case with Dr Rose accepting - Discussed possible transfer no ICU beds DG [id number]: [facility] without ICU Beds DG [id number]: [facility] called back will take pt to PCU Dr Rose accepting DG <Radha Lema - Last Filed: 12/26/18 08:55> ED Results Lab/Radiology - Orders Orders: ED Orders Category Date Time Status Place IV Lock 1T Care 12/26/18 06:40 Ordered Morphine Sulfate Med 12/26/18 06:41 Once 10 mg IV NOW ONE <Elizabeth Magana - Last Filed: 12/26/18 07:02> - Lab Results Lab Results: Lab Results 12/26/18 12/26/18 12/26/18 Unknown Unknown Unknown WBC 31.80 K/ul H K/ul (4.00-12.00) RBC 4.74 M/ul M/ul (3.90-5.20) Hgb 12.7 g/dL g/dL (12.0-18.0) Hct 38.8 % % (37.0-53.0) MCV 82.0 fl fl (80.0-100.0) MCH 26.8 pg L pg (28.0-34.0) MCHC 32.7 g/dL g/dL (30.0-36.0) RDW 16.8 % H % (11.3-14.3) Plt Count 416 K/mm3 H K/mm3 (130-400) Seg Neutrophils % 85 % H % (39-79) Band Neutrophils % 4 % % (0-12) Lymphocytes % 4 % L % (16-50) Monocytes % 3 % % (0-11) Eosinophils % 0 % % (0-7) Basophils % 0 % % (0-2) Metamyelocytes % 1 % H % (0-0) Myelocytes % 2 % H % (0-0) Reactive Lymphocytes 1 % % (0-5) Toxic Granulation Present Poikilocytosis 1+ H (NEGATIVE) Acanthocytes (Spur) 1+ H (NEGATIVE) Sodium 126 mmol/L L mmol/L (137-145) Potassium 3.7 mmol/L mmol/L (3.5-5.1) Chloride 90 mmol/L L mmol/L (98-107) Carbon Dioxide 18 mmol/L L mmol/L (22-30) BUN 12 mg/dL mg/dL (9-20) Creatinine 1.06 mg/dL mg/dL (0.66-1.25) Est GFR ( Amer) > 60 (60 - ) Est GFR (Non-Af Amer) > 60 (60 - ) Glucose 167 mg/dL H mg/dL (74-106) Calcium 8.8 mg/dL mg/dL (8.4-10.2) Total Bilirubin 2.9 mg/dL H mg/dL (0.2-1.3) AST 57 U/L H U/L (15-46) ALT 36 U/L U/L (0-50) Alkaline Phosphatase 131 U/L H U/L (38-126) NT-Pro-B Natriuret Pep 4550.0 pg/mL H pg/mL (11.1-125.0) Total Protein 7.3 g/dL g/dL (6.3-8.2) Albumin 3.2 g/dL L g/dL (3.5-5.0) - Radiology Radiology Impressions: Examination: Portable chest History: Evaluate lungs. Tachycardia elevated wbc's and ascites Comparison exam: None available for direct review. Findings: Single view of the chest demonstrates a hypoventilated inspiratory effort resulting crowding of the cardiac and mediastinal silhouette. Lung singh without focal infiltrate. No blunting of the costophrenic margins. Osseous structures are appropriate for age. Impression: No acute pulmonary process. Consider obtaining a formal PA and lateral film to better evaluate lung singh. Electronically signed on Dec 26, 2018 8:37:22 AM CDT by: Livan Fernandez - Orders Orders: ED Orders Category Date Time Status Place IV Lock 1T Care 12/26/18 06:40 Active CHEST 1VIEW [RAD] Stat Exams 12/26/[address] ABD & PELVIS W/ CON Stat Exams 12/26/18 Ordered BLOOD CULTURE Stat Lab 12/26/18 Ordered BNP [NTBNP] Stat Lab 12/26/18 Completed CBC/PLATELET/DIFF Routine Lab 12/26/18 Completed CMP [CMP] Routine Lab 12/26/18 Completed LACTATE Stat Lab 12/26/18 Ordered PT-INR Routine Lab 12/26/18 Ordered RBC/PLATELET MORPHOLOGY Routine Lab 12/26/18 Completed 0.9 % Sodium Chloride [Normal Saline] 1,000 ml Med 12/26/18 07:16 Active IV NOW Ipratropium/Albuterol Sulfate [Duoneb] Med 12/26/18 07:17 Discontinued 3 ml NEB NOW ONE Metoprolol Tartrate [Lopressor] Med 12/26/18 07:15 Discontinued 2.5 mg IV NOW ONE Morphine Sulfate Med 12/26/18 06:41 Discontinued 10 mg IV NOW ONE Morphine Sulfate Med 12/26/18 06:59 Discontinued 5 mg IV NOW ONE EKG WITH COMPARISON Stat Ther 12/26/18 Ordered <Radha Lema - Last Filed: 12/26/18 08:55> General Adult Physical Exam - PHYSICAL EXAM GENERAL APPEARANCE: moderate distress EENT: RUSSELL NECK: supple RESPIRATORY: wheezes (bilateral), rhonchi (bilateral) CVS: tachycardia ABDOMEN: rigid, distended SKIN: warm/dry EXTREMITIES: edema (+2 pitting lower extremity edema bilaterally) NEURO: oriented X3, cognition normal <Elizabeth Magana - Last Filed: 12/26/18 07:02> Discharge <Elizabeth Magana - Last Filed: 12/26/18 07:02> Decision to Admit: NO Date of Decison to Admit: 12/26/18 Decision Time: 08:53 <Radha Lema - Last Filed: 12/26/18 08:55> Clincal Impression: Advanced hepatic cirrhosis CHF (congestive heart failure) Qualifiers: Heart failure type: unspecified Heart failure chronicity: chronic Qualified Code(s): I50.9 - Heart failure, unspecified Referrals: Michael Zavala MD [Primary Care Provider] - 2 Days Condition: Critical Disposition: XFER SHT-COUNT INCLUDES THE [facility] HOSP
[2018-12-26] MEDS ORDERED: MORPHINE SULFATE 5 MG/ML ML IV ONE ×2 (06:59→08:48)
[2018-12-26] MEDS ORDERED: METOPROLOL TARTRATE 5 MG/5 ML VIAL IV ONE ×2 (07:15→08:56)
[2018-12-26] MEDS ORDERED: 0.9 % SODIUM CHLORIDE 1,000 ML IV ONE (07:16)
[2018-12-26] MEDS ORDERED: IPRATROPIUM/ALBUTEROL SULFATE 3 ML AMPUL.NEB NEB ONE (07:17)
[2018-12-26 07:22] LABS: MEAN CORPUSCULAR HEMOGLOBIN 26.8 pg (28.0-34.0)
[2018-12-26 07:23] LABS: BASOPHILS % 0 % (0-2); EOSINOPHILS % 0 % (0-7); MONOCYTES % 3 % (0-11); SEGMENTED NEUTROPHILS % 85 % (39-79); TOXIC GRANULATION PRESENT
[2018-12-26 07:29] LABS: eGFR (Non-African) > 60
[2018-12-26 09:11] LABS: APPEARANCE,URINE CLOUDY (CLEAR); COLOR,URINE ORANGE (YELLOW); OCCULT BLOOD,URINE TRACE-INTACT (NEGATIVE); PH URINE 6.5 (5.0 - 8.0)
[2018-12-26 09:21] VITALS: BP 117/84
--- NOTE | 2018-12-26 15:22 | Diagnostic Imaging Report ---
KIAN ZHAO [facility] [address] [facility] [address] [place], [place]. [address] Report Submission Date: Dec 26, 2018 8:37:22 AM CDT Patient Study Name: PHAM LYNCH V Date: Dec 26, 2018 7:43:58 AM CDT Modality Type: DX Gender: M Description: CHEST 1VIEW : 57 Institution: [facility] Physician: KIAN ZHAO Examination: Portable chest History: Evaluate lungs. Tachycardia elevated wbc's and ascites Comparison exam: None available for direct review. Findings: Single view of the chest demonstrates a hypoventilated inspiratory effort resulting crowding of the cardiac and mediastinal silhouette. Lung singh without focal infiltrate. No blunting of the costophrenic margins. Osseous structures are appropriate for age. Impression: No acute pulmonary process. Consider obtaining a formal PA and lateral film to better evaluate lung singh. Electronically signed on Dec 26, 2018 8:37:22 AM CDT by: Livan PERALES
--- NOTE | 2018-12-26 15:22 | Diagnostic Imaging Report ---
<p>Your browser does not support iframes.</p> KIAN ZHAO [facility] [address] [facility] [address] [place], [place]. [address] Report Submission Date: Dec 26, 2018 10:46:03 AM CDT Patient Study Name: PHAM LYNCH V Date: Dec 26, 2018 8:02:24 AM CDT Modality Type: CT\SR Gender: M Description: CT ABD PELVIS W/ CON : 57 Institution: [facility] Physician: KIAN ZHAO Examination: CT Abdomen/pelvis History: ASCITES, ELEVATED WHITE COUNT Comparison exams: 17 September 2018 Technique: CT Abdomen/pelvis without contrast protocol. Findings: Significant abdominal free fluid. Liver demonstrates low attenuation with nodular margin. Spleen not enlarged. Kidneys without suspicious calcification. Ureters do not appear to be abnormally dilated. Pancreas does not appear to be enlarged. Fluid within the gallbladder. No obvious stone. Abdominal aorta demonstrates peripheral atherosclerotic disease without aneurysmal dilation. Cardiac silhouette not enlarged. Vascular and valve calcifications. Significant dilation of numerous small bowel loops associated with air-fluid levels. Stool and air within the large bowel. Distended stomach. Degenerative changes of the lumbar vertebral bodies. Bibasilar linear infiltrates with small effusions. Impression: Significant abdominal ascites. Numerous dilated loops of small bowel with air-fluid levels - small bowel obstruction. Correlate with any underlying medical condition. Consider surgical consultation if not already obtained. Hepatic cirrhosis with fatty infiltration. Lung base infiltrates/effusions. Electronically signed on Dec 26, 2018 10:46:03 AM CDT by: Livan PERALES
== END 2018-12-26 09:03 | disposition short-term general hospital (02) ==
LOC: ED 06:28
DX: K74.69 Other cirrhosis of liver (principal); I50.9 Heart failure, unspecified
CPT/HCPCS: 36415; 71045; 74177; 80053; 81002; 83605; 83880; 85025; 85610; 87040; 87086; 93005; 94640; 96374; 96375; 96376; 99285; J3490; J7030; Q9967; S1016